=== PATIENT | female | born 2005 ===

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

== ENCOUNTER 2024-03-17 04:47 | Emergency (ER) | payer SELFPAY ==
[2024-03-17 04:52] VITALS: BP 103/45; PULSE 76; RESP 18; TEMP 36.8; O2SAT 98; BMI 22.2
--- NOTE | 2024-03-17 07:04 | ED.SKABFB ---
HPI - Skin/Abscess/Foreign Bdy General Chief complaint: Skin/Abscess/Foreign Body Stated complaint: cyst on left buttocks Time Seen by Provider: 03/17/24 07:01 Source: patient and old records reviewed Mode of arrival: ambulatory Limitations: no limitations History of Present Illness ED Provider: ANGELA NEWBY narrative: 18 yo female healthy here with 1 week of painful bump on buttock area no hx of this in past no DM, no fevers, n/v/d. Now having pain while sitting down. MD complaint: abscess/boil Onset (ago): week(s) (1) Location: buttocks Severity: moderate Quality: aching Pain Consistency: intermittent Relieving factors: none Exacerbating factors: palpation and movement Context: none Associated symptoms: denies other symptoms Treatments prior to arrival: none Related Data Previous Rx's ?Medication ?Instructions ?Recorded bacitracin zinc 500 unit-polymyxin 1 appl topical BID 7 days #14.2 12/23/22 B 10,000 unit/gram topical ointment grams ibuprofen 400 mg tablet 400 mg PO TID PRN pain #20 tabs 12/23/22 amoxicillin 875 mg-potassium 1 tab PO BID 7 days #14 tabs 06/01/23 clavulanate 125 mg tablet amoxicillin 875 mg-potassium 1 tab PO BID #14 tabs 03/17/24 clavulanate 125 mg tablet fluconazole 150 mg tablet 150 mg PO Q3D 2 doses #2 tabs 03/17/24 Allergies Allergy/AdvReac Type Severity Reaction Status Date / Time No Known Allergies Allergy Verified 03/17/24 04:52 Review of Systems Review of Systems: Constitutional : No Fever, No Chills ENT/Mouth : No sore throat, No Rhinorrhea Eyes: No Eye Pain, No Swelling, No Redness Cardiovascular : No Chest Pain, No SOB Respiratory : No Cough, No Sputum Gastrointestinal : No Nausea, No Vomiting, No Diarrhea, No abdominal Pain Genitourinary : No Dysuria, No Hematuria Musculoskeletal : No joint pain, No Myalgias, No Joint Swelling Skin : pos Skin Lesion, no skin rash Neuro : No Weakness, No Numbness, No Headache Psych : No Anxiety, No Depression Heme/Lymph: No Bruising, No Bleeding,No Lymphadenopathy Endocrine : No Polyuria, No Polydipsia All other systems reviewed and are negative [facility] Past Medical History Attestation statement: The following information was validated with the patient. Source: old records reviewed Medical History No pertinent past medical history Social History Social History Alcohol intake: never Advance Directives: No Advance Directives Information Provided: No Do you have a plan to hurt others: No Plan Physical Exam Vital Signs: Vital Signs: Last Vital Signs Temp 98.3 F 03/17/24 08:55 Pulse 76 03/17/24 08:55 Resp 18 03/17/24 08:55 BP 103/45 L 03/17/24 08:55 Pulse Ox 98 03/17/24 08:55 O2 Del Method Room Air 03/17/24 08:55 BMI result Body Mass Index 22.2 Appearance: Alert. Oriented X3. No acute distress. Eyes: Pupils equal, round and reactive to light. ENT: Pharynx normal. Neck: Normal inspection. Neck supple. CVS: Normal heart rate and rhythm. Pulses normal. Respiratory: No respiratory distress. Breath sounds normal. Abdomen: Soft and nontender. Buttock: L buttock upper crease pilonidal 3cm fluctuanct abscess noted no extension to anus no surrounding erythema no crepitus Skin: Skin warm and dry. Normal skin color. Normal skin turgor. Extremities: No lower extremity edema. Neuro: Oriented X 3. No motor deficit. No sensory deficit. Medications Administered Discontinued Medications Generic Name Dose Route Start Last Admin Trade Name Freq PRN Reason Stop Dose Admin Lidocaine HCl 5 ml 03/17/24 07:17 03/17/24 08:46 Lidocaine Hcl 1 % Mpf 5 Ml Vial SUBCUT 03/17/24 07:18 5 ml ONCE ONE Administration Lorazepam 1 mg 03/17/24 07:45 03/17/24 07:54 Lorazepam 1 Mg Tablet PO 03/17/24 07:46 1 mg ONCE ONE Administration Lidocaine/Epinephrine/Tetracaine 3 ml 03/17/24 07:17 03/17/24 08:46 Lidocaine/Racepinep/Tetracaine 3 Ml Gel.Pf.Nydia TOPICAL 03/17/24 07:18 3 ml ONCE ONE Administration Medical Decision Making Medical Decision Making MDM Narrative: 18 yo female with no sig PMH here with pilonidal cyst no systemic symptoms no cellulitis at this time will I+D the area and start on augmentin Differential Diagnosis Differential Diagnoses: The differential diagnosis associated with the presentation includes abscess, pilonidal cyst Independent Historian Clinical information obtained from an independent historian. History obtained from or confirmed by: Other Prescription Management I considered prescription management with: Pain Medication, Antibiotic and Other Procedures Abscess I/D Site: other (pilonidal ) Side (if applicable): left Local Anesthetic: lidocaine 1% and other anesthetic Amount of anesthesia used (mL): 5 Technique: incised with blade Amount of fluid expressed (mL): 5 Sent for culture/gram staining?: No Irrigation: Yes Packing used?: iodoform Discharge Plan Discharge Clinical Impression: Infected pilonidal cyst Patient Disposition: Home, Self-Care Instructions: Pilonidal Cyst (ED), Pilonidal Cyst Excision (DC) Additional Instructions: return for worsening pain, fevers, bleeding that is heavy with clots should not be saturating more than a period pad in a 4 hour period packing out in 48 hours can come back here or remove at home it is okay if it falls out early complete antibiotics use diflucan if you feel you have yeat infection at the end of antibiotics okay to shower but no other water exposures for the next 10 days Prescriptions: New amoxicillin-pot clavulanate 875-125 mg tablet 1 tab PO BID Qty: 14 0RF fluconazole 150 mg tablet 150 mg PO Q3D Qty: 2 0RF Rx Instructions: may repeat second dose 72 hrs after first dose if symptoms persist No Action amoxicillin-pot clavulanate 875-125 mg tablet 1 tab PO BID 7 Days Qty: 14 0RF ibuprofen 400 mg tablet 400 mg PO TID PRN (Reason: pain) Qty: 20 0RF bacitracin zinc-polymyxin B 500-10,000 unit/gram ointment 1 appl topical BID 7 Days Qty: 14.2 0RF Interventions: ED Discharge Assessment Last Done: 03/17/24 08:55 Discharge Date/Time: 03/17/24 08:56 Print Language: Welsh
--- NOTE | 2024-03-17 07:45 | PC.NURSE ---
Lidocaine left at bedside for provider M, DO Keyshawn.
[2024-03-17] MEDS: LORazepam 1 MG TABLET PO (07:54)
[2024-03-17] MEDS: Lidocaine HCl 1 % MPF 5 ML VIAL SUBCUT (08:46)
[2024-03-17] MEDS: Lidocaine/Racepinep/Tetracaine 3 ML GEL.PF.APP TOPICAL (08:46)
[2024-03-17 08:55] VITALS: BP 103/45; PULSE 76; RESP 18; TEMP 36.8; O2SAT 98
== END 2024-03-17 08:56 | disposition home or self-care (01) ==
PROVIDERS: Emergency Provider Emergency Medicine
DX: L05.01 Pilonidal cyst with abscess (principal); L03.317 Cellulitis of buttock
CPT/HCPCS: 10080; 99282; 99284